=== PATIENT | female | born 1970 | race Caucasian/White ===

== ENCOUNTER 2017-02-22 05:49 | Emergency (ER) | payer OTHER ==
[~2017-02-22] VITALS: Ht 170.2 cm; Wt 126.7 kg
[2017-02-22 06:28] LABS: HEMATOCRIT 40.2 % (36.0-46.0); MCH 27.8 PG (29.0-34.0); MCHC 32.6 G/DL (30.0-36.0); MCV 85.4 FL (83-99); MEAN PLAT.VOLUME 9.7 uM^3 (9.5-12.4); PLATELET COUNT 279 K/uL (156-360); RBC DIS.WIDTH-CV 13.8 % (11.8-14.6); RBC DIS.WIDTH-SD 43.2 % (39-53); RED BLOOD COUNT 4.71 M/uL (3.80-5.20); WHITE BLOOD COUNT 10.5 K/uL (4.1-10.2)
[2017-02-22 06:39] LABS: CHLORIDE 108 mEq/L (99-109); POTASSIUM 3.8 mEq/L (3.7-5.4); SODIUM 136 mEq/L (136-147)
[2017-02-22 06:42] LABS: GLUCOSE 106 mg/dL (70-99)
[2017-02-22 06:43] LABS: ANION GAP 6 MEQ/L (2-14)
[2017-02-22 06:44] LABS: TOTAL BILIRUBIN 0.4 mg/dL (0.0-1.0)
[2017-02-22 06:45] LABS: ALKALINE PHOSPHATASE 77 IU/L (3-129); GFR ESTIMATE (CALCULATED) > 59 mL/min/
[2017-02-22 06:46] LABS: UREA NITROGEN (BUN) 20 mg/dL (9-23)
[2017-02-22 06:55] LABS: QUANTITATIVE HCG < 4.0 MIU/ML
[2017-02-22 10:14] LABS: ADD MIUA? NO; BILIRUBIN NEGATIVE; BLOOD NEGATIVE; COLOR YELLOW ((YELLOW)); GLUCOSE (STRIP) NEGATIVE; KETONES NEGATIVE; LEUKOCYTES NEGATIVE; NITRITE NEGATIVE; PROTEIN (STRIP) NEGATIVE; UCUL ADDED? NO; UROBILINOGEN 0.2 MG/DL (0.2-1.0)
[2017-02-22 10:29] LABS: SPECIFIC GRAVITY 1.068 (1.000-1.030)
[2017-02-22] MEDS ORDERED: TYLENOL WITH C1 EACH PO (10:58)
[2017-02-22 11:16] VITALS: BP 123/77
== END 2017-02-22 11:17 | disposition home or self-care (01) ==
LOC: EME 05:49
DX: R10.31 Right lower quadrant pain (principal)
CPT/HCPCS: 74177; 80053; 81003; 84702; 85027; 99281; 99285; J2270; J2405; J7030